=== PATIENT | male | born 1945 | race Caucasian/White ===

== ENCOUNTER 2017-06-26 10:36 | Outpatient (CLI) | payer MEDICARE, OTHER ==
--- NOTE | 2017-06-26 12:16 | CT ---
CT BRAIN WITHOUT CONTRAST: Date: 06/26/17 HISTORY: Headache, R51. COMPARISON: None. FINDINGS: No acute territory infarct or hemorrhage. No midline shift or mass effect. Ventricular size and extra -axial CSF spaces are normal. Calvarium is intact. Paranasal sinuses and mastoids are clear. IMPRESSION: No acute intracranial abnormality. POS: [facility]
== END 2017-06-26 10:37 | disposition home or self-care (01) ==
LOC: TBSIIMAG 10:36
PROVIDERS: ATTEND Neurological Surgery
DX: R51 Headache (principal)
CPT/HCPCS: 70450

== ENCOUNTER 2017-08-08 11:06 | Outpatient (CLI) | payer MEDICARE, OTHER | END 2017-08-08 11:07 | disposition home or self-care (01) | LOC: SLEEPLAB 11:06 | PROVIDERS: ATTEND Family Medicine | DX: G47.33 Obstructive sleep apnea (adult) (pediatric) (principal); E66.9 Obesity, unspecified | CPT/HCPCS: 95811 ==

== ENCOUNTER 2018-04-17 09:36 | Outpatient (CLI) | payer MEDICARE, OTHER ==
--- NOTE | 2018-04-17 12:06 | CT ---
CT LUMBAR SPINE WITHOUT CONTRAST: HISTORY: Low back pain that radiates down the right leg that has gotten worse over the last few months. Spond ylolisthesis. COMPARISON: None. TECHNIQUE: Multiple contiguous axial images were obtained in a CT of the lumbar spine without contrast. Sagitta l and coronal reformats were performed. FINDINGS: The vertebral bodies demonstrate normal height and alignment without fracture or subluxation. Modera te anterior osteophytes are seen in the upper lumbar spine. Atherosclerotic calcifications are seen in the aorta. The other prevertebral and paraspinal soft tissues are unremarkable. No pars defects are visualized. T12-L1: Unremarkable. L1-L2: Unremarkable. L2-L3: A small disk osteophyte complex is seen. Mild bilateral posterior facet arthrosis. No centr al canal stenosis. No neural foraminal stenosis. L3-L4: A small disk osteophyte complex is seen. Mild bilateral posterior facet arthrosis. Mild bry tral canal stenosis. Mild to moderate bilateral neural foraminal stenosis, right greater than left. L4-L5: A moderate disk osteophyte complex is seen. Moderate bilateral posterior facet arthrosis. M ild central canal stenosis. Moderate bilateral neural foraminal stenosis. L5-S1: No significant posterior bulge or protrusion. No posterior facet arthrosis. No central nicole l stenosis. Mild bilateral neural foraminal stenosis. IMPRESSION: Degenerative changes of the lumbar spine, as above. POS: [facility]
== END 2018-04-17 09:37 | disposition home or self-care (01) ==
LOC: BICCT 09:36
PROVIDERS: ATTEND Specialist
DX: M43.16 Spondylolisthesis, lumbar region (principal); M47.816 Spondylosis without myelopathy or radiculopathy, lumbar region
CPT/HCPCS: 72131

== ENCOUNTER 2018-04-25 12:41 | Outpatient (CLI) | payer MEDICARE, OTHER ==
--- NOTE | 2018-04-25 14:37 | ULT ---
RENAL SONOGRAM WITH DUPLEX EVALUATION: HISTORY: Chronic renal failure. FINDINGS: The right kidney is 11.2 cm and the left is 10.4 cm. Each has a normal appearance without evidence o f mass, stone, or hydronephrosis. The urinary bladder is incompletely distended. Good color and spectral Doppler flow within each renal artery and the aorta. No abnormally elevated peak systolic velocities. Resistive index associated with the arcuate arteries of the right kidney i s 0.8 and the left kidney is 0.7. IMPRESSION: 1. No evidence of urinary tract obstruction or significant renal artery stenosis. 2. Slightly elevated resistive indices are nonspecific, usually seen with chronic medical renal dise ase. POS: [facility]
== END 2018-04-25 12:42 | disposition home or self-care (01) ==
LOC: BICULT 12:41
PROVIDERS: ATTEND Internal Medicine Nephrology
DX: I13.10 Hypertensive heart and chronic kidney disease without heart failure, with stage 1 through stage 4 chronic kidney disease, or unspecified chronic kidney disease (principal); E11.22 Type 2 diabetes mellitus with diabetic chronic kidney disease; N18.3 Chronic kidney disease, stage 3 (moderate); I51.9 Heart disease, unspecified; R80.9 Proteinuria, unspecified; C61 Malignant neoplasm of prostate; E78.5 Hyperlipidemia, unspecified; E87.6 Hypokalemia; M19.90 Unspecified osteoarthritis, unspecified site; M10.9 Gout, unspecified
CPT/HCPCS: 76700; 76770

== ENCOUNTER 2018-08-27 09:04 | Outpatient (CLI) | payer MEDICARE, OTHER ==
--- NOTE | 2018-08-27 09:17 | RAD ---
EXAM: Chest PA and lateral: HISTORY: Dyspnea COMPARISON: 08/17/2015 FINDINGS: Lung ochoa are clear. Vascular markings are normal. Heart size mildly enlarged. Transvenous pacemaker and ICD leads are unchanged. Degenerative spine changes again noted. IMPRESSION: No acute finding. No interval change.
== END 2018-08-27 09:05 | disposition home or self-care (01) ==
LOC: RAD 09:04
PROVIDERS: ATTEND Internal Medicine Critical Care Medicine
DX: R06.00 Dyspnea, unspecified (principal)
CPT/HCPCS: 71046

== ENCOUNTER 2019-02-01 18:19 | Inpatient (IN) | payer MEDICARE, OTHER ==
[2019-02-01] MEDS ORDERED: cefTRIAXone\\ROCEPHIN 1 GM VIAL ONE (19:09)
[2019-02-01 19:52] LABS: CKMB 2.1 ng/mL (0-6.6)
[2019-02-01] MEDS ORDERED: Vancomycin HCl 1.25 GM in Sodium Chloride 0.9% 250 ML 250 ML IVPB SCH (20:15)
[2019-02-01 21:49] VITALS: BMI 31.1
[2019-02-01] MEDS ORDERED: Ondansetron ODT 4 MG TAB SL PRN (21:55)
[2019-02-01] MEDS ORDERED: Ondansetron PF 4 MG/2 ML Vial IVP PRN (21:55)
[2019-02-01] MEDS ORDERED: Acetaminophen 325 MG TAB PO PRN (21:55)
[2019-02-01] MEDS: Sodium Chloride 0.9% 1,000 ML IV SCH (22:26)
[2019-02-02] MEDS: Sodium Chloride 0.9% 1,000 ML IV SCH (05:33)
[2019-02-02] MEDS ORDERED: Carvedilol 25 MG TAB PO SCH (09:00)
[2019-02-02] MEDS ORDERED: HYDROcodone/Acetaminophen 5/325 mg Tablet PO PRN (09:37)
[2019-02-02] MEDS ORDERED: HYDROcodone/Acetaminophen 7.5/325 mg Tablet PO PRN (09:37)
[2019-02-02] MEDS ORDERED: Ondansetron PF 4 MG/2 ML Vial IVP PRN (09:37)
[2019-02-02] MEDS ORDERED: Ondansetron ODT 4 MG TAB PO PRN (09:37)
[2019-02-02] MEDS ORDERED: diphenhydrAMINE 25 MG CAP PO PRN (09:40)
[2019-02-02] MEDS ORDERED: Melatonin 3 MG TAB PO PRN (09:40)
[2019-02-02] MEDS ORDERED: Docusate 100 MG CAP PO PRN (09:40)
[2019-02-02] MEDS ORDERED: Labetalol HCl 100 MG/20 ML VIAL SLOW IVP PRN (09:40)
[2019-02-02] MEDS ORDERED: Benzonatate 100 MG CAP PO PRN (09:40)
[2019-02-02] MEDS: cefTRIAXone\\ROCEPHIN 2 GM in Sodium Chloride 0.9% 100 ML IVPB SCH (10:10)
[2019-02-02] MEDS: Famotidine 20 MG TAB PO SCH ×2 (10:10→20:35)
[2019-02-02] MEDS: Clopidogrel Bisulfate 75 MG TAB PO SCH (10:10)
[2019-02-02] MEDS: Isosorbide Dinitrate 5 MG TAB PO SCH (11:18)
[2019-02-02 12:38] LABS: Anion Gap 13 mmol/L (10-20); BUN (Urea Nitrogen) 40 mg/dL (8.4-25.7); Calc. Creatinine Clearance 33 mL/min (70-130); Calcium 8.1 mg/dL (7.8-10.44); Carbon Dioxide 22 mmol/L (23-31); Chloride 113 mmol/L (98-107); Estimated GFR-MDRD 23; Glucose 134 mg/dL (83-110); Potassium 3.5 mmol/L (3.5-5.1); Sodium 144 mmol/L (136-145)
--- NOTE | 2019-02-02 13:56 | ULT ---
BILATERAL RENAL ULTRASOUND: Date: 02/02/19 HISTORY: Acute renal insufficiency. FINDINGS/IMPRESSION: The right kidney measures 12.6 cm in length and the left kidney measures 11.4 cm in length. The corti sebastien echogenicity is increased consistent with medical renal disease. No mass or hydronephrosis noted on either side. The urinary bladder appears normal. There is a cystic structure anterior to the bladder, between the bladder and the anterior abdominal w all, measuring about 3.7 cm in diameter. Etiology of this is uncertain. POS: [facility]
--- NOTE | 2019-02-02 16:18 | PDOC.HHP ---
Hospitalist HPI - History of Present Illness UTI symptoms History of Present Illness: Mr. 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 Patient had this urethral sphincter changed because it was leaking, this was done by Dr. Wang at [facility] who is expert in the area in urology, per the patient. This was performed roughly 3 months ago and the patient has had problems ever since. Patient has had problems with bleeding and hematuria. Patient has problems with chronic urinary tract infection. Patient initially presenting to [facility] for sepsis and was transferred for higher level of care. The patient with urinary tract infection and his urethral sphincter is nonfunctional, he has urinary incontinence currently. Patient does have an outpatient appointment with Dr. Wang this Sunday which he would like to make to have urethral sphincter adjusted and make it functional. Patient found have urinary tract infection, acute kidney injury, and dehydration. Patient admitted to medical unit for further evaluation. Nephrology consultation requested for further recommendations. Patient started on empiric antibiotic therapy cultures were obtained. Hospitalist ROS - Review of Systems All other systems reviewed; all pertinent +/- noted in HPI/Subj - Medication Medications: Active Medications Generic Name Dose Route Start Last Admin Trade Name Freq PRN Reason Stop Dose Admin Albuterol/Ipratropium 3 ml 02/02/19 09:40 02/02/19 14:52 Duoneb NEB 3 ml Q4H PRN Administration SOB &/or Wheezing Clopidogrel Bisulfate 75 mg 02/02/19 09:00 02/02/19 10:10 Plavix PO 75 mg QAM JEROME Administration Famotidine 20 mg 02/02/19 09:00 02/02/19 10:10 Pepcid PO 20 mg BID JEROME Administration Ceftriaxone Sodium 2 gm/ 100 mls @ 100 mls/hr 02/02/19 10:00 02/02/19 10:10 Sodium Chloride IVPB 100 mls 1000 JEROME Administration Isosorbide Dinitrate 15 mg 02/02/19 09:00 02/02/19 11:18 Isordil PO 15 mg QAM JEROME Administration Ondansetron HCl 4 mg 02/02/19 09:37 02/02/19 10:07 Zofran IVP 4 mg Q6H PRN Administration Nausea/Vomiting Potassium Chloride 20 meq 02/02/19 09:00 02/02/19 10:10 Klor-Con PO 20 meq BID JEROME Administration Hospitalist History - Past Medical History Source: patient Cardiac: reports: HTN, [place] Pulmonary: reports: heart attack, high cholesterol, hypertension Renal/: reports: Other (Urinary incontinence associated with artificial urethral sphincter malfunction) - Family History Family History: reports: hyperlipidemia, hypertension - Social History Smoking Status: Unknown if ever smoked Alcohol: reports: None Drugs: reports: none Living Situation: With Family Domestic Violence: Negative Activity level: independent ambulation - Exam General Appearance: NAD, awake alert Eye: PERRL ENT: normocephalic atraumatic, moist mucosa Neck: supple, symmetric, no lymphadenopathy Heart: no murmur, no gallops, no rubs Respiratory: CTAB, no wheezes, no rales, no ronchi, normal chest expansion Gastrointestinal: soft, non-tender, non-distended, no guarding, no rigidity Extremities: no clubbing, no edema Skin: no lesions, no rashes Neurological: cranial nerve grossly intact, no weakness, no focal deficits Musculoskeletal: no muscle wasting Psychiatric: normal affect, A&O x 3 Hospitalist Results - Labs Result Diagrams: 02/02/19 11:54 Lab results: Sodium 144 mmol/L (136-145) 02/02/19 11:54 Potassium 3.5 mmol/L (3.5-5.1) 02/02/19 11:54 Chloride 113 mmol/L (98-107) H 02/02/19 11:54 Carbon Dioxide 22 mmol/L (23-31) L 02/02/19 11:54 BUN 40 mg/dL (8.4-25.7) H 02/02/19 11:54 Creatinine 2.73 mg/dL (0.7-1.3) H 02/02/19 11:54 Glucose 134 mg/dL (83-110) H 02/02/19 11:54 Calcium 8.1 mg/dL (7.8-10.44) 02/02/19 11:54 CK-MB (CK-2) 2.1 ng/mL (0-6.6) 02/01/19 18:53 Troponin I 0.143 ng/mL (< 0.028) H 02/01/19 18:53 - Radiology Interpretation Other Status: image reviewed by me (Renal US) Hospitalist H&P A/P - Problem (1) UTI (urinary tract infection) Status: Acute (2) SAMIR (acute kidney injury) Code(s): N17.9 - ACUTE KIDNEY FAILURE, UNSPECIFIED Status: Acute (3) CKD (chronic kidney disease) Code(s): N18.9 - CHRONIC KIDNEY DISEASE, UNSPECIFIED Status: Chronic (4) CAD (coronary artery disease) Code(s): I25.10 - ATHSCL HEART DISEASE OF [place] CORONARY ARTERY W/O ANG PCTRS Status: Chronic (5) Diabetes Code(s): E11.9 - TYPE 2 DIABETES MELLITUS WITHOUT COMPLICATIONS Status: Chronic (6) Hypertension Code(s): I10 - ESSENTIAL (PRIMARY) HYPERTENSION Status: Chronic - Plan Plan: Plan: medical unit nephrology consultation, recommendations appreciated consider urology consultation however the patient has an appointment with his outpatient urologist on Sunday of this week who is a specialist in urethral sphincter and did original surgery it is unlikely that our urologist will have anything to offer at this point Urinary incontinence, no obstruction patient will need treatment for urinary tract infection, started on empiric ABX Urine CX, de escalate as able Renal US blood pressure control blood sugar control continue home medications as able
[2019-02-02] MEDS: Carvedilol 25 MG TAB PO SCH (20:35)
[2019-02-03 06:49] LABS: Anion Gap 13 mmol/L (10-20); BUN (Urea Nitrogen) 43 mg/dL (8.4-25.7); Calc. Creatinine Clearance 32 mL/min (70-130); Calcium 8.7 mg/dL (7.8-10.44); Carbon Dioxide 23 mmol/L (23-31); Chloride 115 mmol/L (98-107); Estimated GFR-MDRD 22; Glucose 96 mg/dL (83-110); Potassium 3.6 mmol/L (3.5-5.1); Sodium 147 mmol/L (136-145)
[2019-02-03 07:07] LABS: #Eosinphils 0.3 thou/uL (0.0-0.7); #Lymphocytes 1.5 thou/uL (1.20-3.40); #Neutrophils 5.6 thou/uL (1.40-6.50); %Basophils 0.5 % (0.0-1.0); %Eosinophils 3.9 % (0.0-10.0); %Lymphocytes 17.9 % (21.0-51.0); %Monocytes 11.5 % (0.0-10.0); %Neutrophils 66.1 % (42.0-75.0); Hemoglobin 10.1 g/dL (14.0-18.0); Mean Corpuscular HGB CONC 31.2 g/dL (32.0-36.0); Mean Corpuscular Hemoglobin 31.3 pg (27.0-31.0); Mean Platelet Volume 11.3 fL (7.4-10.4); Platelet Count 116 thou/uL (130-400); Red Blood Cell (RBC) Count 3.24 mill/uL (4.70-6.10); White Blood Cell (WBC) Count 8.5 thou/uL (4.8-10.8)
[2019-02-03 07:22] LABS: Bite Cells SLIGHT = 2-5 cells (100X) (0-1/hpf); Hypochromia SLIGHT = 6-15 cells (100X) (0-5/hpf); MDiff Complete? YES; Platelet Morphology Comment Appears Decreased; Polychromasia SLIGHT = 2-3 cells (100X) (0-2/hpf); Schistocytes SLIGHT = 2-5 cells (100X) (0-1/hpf)
[2019-02-03 07:48] VITALS: BP 191/76; TEMP 98.3
[2019-02-03] MEDS ORDERED: Allopurinol 300 MG TAB PO SCH (09:00)
[2019-02-03] MEDS ORDERED: Aspirin Chewable 81 MG TAB PO SCH (09:00)
[2019-02-03] MEDS: cefTRIAXone\\ROCEPHIN 2 GM in Sodium Chloride 0.9% 100 ML IVPB SCH (10:52)
[2019-02-03] MEDS: Isosorbide Dinitrate 5 MG TAB PO SCH (10:53)
[2019-02-03] MEDS: Carvedilol 25 MG TAB PO SCH (10:54)
[2019-02-03] MEDS: Famotidine 20 MG TAB PO SCH (10:54)
[2019-02-03] MEDS: Clopidogrel Bisulfate 75 MG TAB PO SCH (10:55)
--- NOTE | 2019-02-04 04:17 | DIS ---
DATE OF ADMISSION: 02/01/2019 DATE OF DISCHARGE: 02/03/2019 REASON FOR HOSPITALIZATION: Urinary tract infection. SIGNIFICANT FINDINGS: The patient was found to have acute urinary tract infection. PROCEDURES PERFORMED AND TREATMENTS RENDERED: The patient was admitted to medical unit with telemetry, started on IV antibiotics. The patient was monitored in [facility] and had resolution of fevers. The patient had a normal WBC count. The patient is ambulating to and from the restroom without difficulties. The patient recommended safe for discharge with close followup in the outpatient setting. CONDITION ON DISCHARGE: Stable. SPECIFIC INSTRUCTIONS FOR THE PATIENT/FAMILY: 1. The patient is recommended to take a full course of oral antibiotics for resolution of urinary tract infection. 2. The patient is recommended to follow up with Urology, Dr. Wang, at his appointment tomorrow in the outpatient setting for evaluation and treatment of implantable urethral sphincter. The patient is recommended to discuss recent hospitalization with Dr. Wang, his urologist, and take in the medication that he was discharged for re-evaluation by urologist. 3. The patient is recommended to follow up with primary care physician in the next 5 to 7 days. 4. The patient is recommended follow up with Cardiology in the next 1 to 2 weeks. 5. The patient is recommended to follow up with Nephrology in the next 1 to 2 weeks. 6. The patient is recommended to return to acute care hospital immediately if signs or symptoms return, worsen, or any other new symptoms occur. HOSPITAL COURSE: Mr. Vázquez is a very pleasant 73-year-old gentleman with past medical history of prosthetic urethral sphincter placed by Dr. Wang roughly 3 months ago. The patient states that he has had frequent complications since this time including bleeding from the urinary bladder and also frequent bladder infections. The patient initially presented to the emergency department in [place] and was transferred for higher level of care. The patient was started on empiric antibiotics, which resulted in resolution of his fever. The patient with additionally febrile with a fever of 101.1 on admission. After the starting of antibiotics, patient having no more fevers. The patient had a normal WBC count. The patient's urine was collected for a urine culture and this remains with no growth to date. I will continue to watch the urinary culture and if abnormality develops, I will update the patient if there is resistance to the current antibiotics. The patient was ambulating to and from the restroom without difficulties. The patient did have acute kidney injury on chronic kidney disease. I ordered a renal ultrasound, please see full report for details, there is no obstructive uropathy and there is no hydronephrosis. The patient's implantable urinary sphincter is identifiable. Due to the fact that the patient is voiding without difficulties, he is responding to oral antibiotics, I recommended that he is safe for discharge with close followup in the outpatient setting. The patient has an appointment with his urologist tomorrow in the outpatient setting and I encouraged him to not miss this appointment. 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 The patient recommended to complete a full course of oral antibiotics for resolution of urinary tract infection. The patient recommended to continue all other home medications without changes. The patient is recommended to return to acute care hospital immediately if signs or symptoms return, worsen , or any other new symptoms occur. DISCHARGE MEDICATIONS: Please see full discharge medication list for details, as they have not changed. New medications: Include; 1. Cefpodoxime 200 mg one tablet p.o. q.12 hours for the next 7 days, #14 tablets. 2. Albuterol sulfate two puffs p.o. q.4 hours p.r.n. shortness of breath. 3. All other medications were continued without changes. Greater than 37 minutes spent coordinating care and discharge process for this patient. Job ID: [id number] [facility]
--- NOTE | 2019-02-05 06:40 | PQF ---
[employer] Junior Media Buyer Crystal Reports Winform ViewerSALEM,MARIE Ochoa IAN JOLLEY [id number] [facility] [id number] CLINICAL DOCUMENTATION CLARIFICATION FORM: POST DISCHARGE Addendum to original discharge summary date: ____ Late entry note date: __ DATE: 02/05/2019 ATTN : IAN JOLLEY Please exercise your independent, professional judgment in responding to the clarification form. Clinical indicators are provided on the bottom of this form for your review Please check appropriate box(s): [ XX ] UTI due to Prosthetic urethral sphincter [ ] UTI not due to Prosthetic urethral sphincter [ ] Other diagnosis [ ] Unable to determine In addition, please specify: Present on Admission (POA): [ XX ] Yes [ ] No [ ] Unable to determine For continuity of documentation, please document condition throughout progress notes and discharge summary. Thank You. 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 - Documented in H&P on 02/01 by IAN JOLLEY hx of urethral sphincter changed - Documented in H&P on 02/01 by IAN JOLLEY SAMIR - Hx of 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 All Rights Reserved [email or web address] [not provided] MTDD
--- NOTE | 2019-02-10 03:39 | PQF ---
SAP Army Ranger Crystal Reports Winform ViewerSALMARIE ROSEN IAN JOLLEY [id number] [facility] [id number] CLINICAL DOCUMENTATION CLARIFICATION FORM: POST DISCHARGE Addendum to original discharge summary date: ____ Late entry note date: __ DATE: 02/10/2019 ATTN: IAN JOLLEY Please exercise your independent, professional judgment in responding to the clarification form. Clinical indicators are provided on the bottom of this form for your review Please check appropriate box(s) to clarify if the following diagnosis has been ruled in or ruled out: SEPSIS (CDI/Coding list diagnosis here) [ XX ] Ruled in diagnosis [ XX ] Continue to treat [ ] Resolved [ ] Ruled out diagnosis [ ] Cannot rule out diagnosis [ ] Other diagnosis [ ] Unable to determine In addition, please specify: Present on Admission (POA): [ XX ] Yes [ ] No [ ] Unable to determine For continuity of documentation, please document condition throughout progress notes and discharge summary. Thank You. CLINICAL INDICATORS - SIGNS / SYMPTOMS / LABS Sepsis - Documented in H&P on 02/01 by IAN JOLLEY Fever 101.1 on admission - Documented in DS on 02/03 by Alejandro Dejesus UTI due to Prosthetic uretheral sphincter - Documented in Physician Query response RISK FACTORS SAMIR - Documented in H&P on 02/01 by IAN JOLLEY HTN with CKD TREATMENTS Started in Empiric ABC- Documented in H&P on 02/01 by IAN JOLLEY Patient was monitored on in acute care hospital - Documented in DS on 02/03 by Alejandro Dejesus (This form is maintained as a part of the permanent medical record) SAP Army Ranger Crystal Reports Winform [id number]. All Rights Reserved [email or web address] [not provided] ALANNA
== END 2019-02-03 12:31 | disposition home or self-care (01) | DRG 698 ==
LOC: ERS 18:19 → T4-B 19:15
PROVIDERS: ADMIT Internal Medicine; ATTEND Internal Medicine
DX: T83.591A Infection and inflammatory reaction due to implanted urinary sphincter, initial encounter (principal); A41.9 Sepsis, unspecified organism; N39.0 Urinary tract infection, site not specified; N17.9 Acute kidney failure, unspecified; E86.0 Dehydration; Z79.899 Other long term (current) drug therapy; N18.9 Chronic kidney disease, unspecified; I12.9 Hypertensive chronic kidney disease with stage 1 through stage 4 chronic kidney disease, or unspecified chronic kidney disease; E11.22 Type 2 diabetes mellitus with diabetic chronic kidney disease; I25.10 Atherosclerotic heart disease of native coronary artery without angina pectoris
CPT/HCPCS: 36415; 36416; 76770; 80048; 82553; 85025; 87086; 94640; 96365; 96367; J0696; J2405; J3370; J3490; J7050; J7620

== ENCOUNTER 2019-07-17 05:57 | Inpatient (IN) | payer MEDICARE, OTHER ==
[2019-07-17] MEDS ORDERED: Nitroglycerin 50 MG/250 ML BOT 250 ML ONE (06:23)
[2019-07-17] MEDS ORDERED: Nitroglycerin 2% Ointment 1 INCH/1 GM Packet ONE (06:33)
[2019-07-17 09:36] LABS: CKMB 2.7 ng/mL (0-6.6)
[2019-07-17 11:02] VITALS: BMI 37.1
[2019-07-17 11:46] LABS: Troponin I 0.078 ng/mL (< 0.028)
[2019-07-17] MEDS ORDERED: Senokot S 8.6-50 MG TAB PO PRN (13:01)
[2019-07-17] MEDS ORDERED: Acetaminophen 325 MG TAB PO PRN (13:01)
[2019-07-17] MEDS ORDERED: Clopidogrel Bisulfate 75 MG TAB PO SCH (13:45)
[2019-07-17] MEDS ORDERED: Carvedilol 25 MG TAB PO SCH ×3 (13:45→21:00)
[2019-07-17 14:24] LABS: Anion Gap 13 mmol/L (10-20); BUN (Urea Nitrogen) 51 mg/dL (8.4-25.7); Calc. Creatinine Clearance 35 mL/min (70-130); Carbon Dioxide 27 mmol/L (23-31); Chloride 107 mmol/L (98-107); Estimated GFR-MDRD 20; Potassium 3.1 mmol/L (3.5-5.1); Sodium 144 mmol/L (136-145)
[2019-07-17 14:25] LABS: Calcium 8.6 mg/dL (7.8-10.44); Glucose 121 mg/dL (83-110)
[2019-07-17] MEDS ORDERED: Potassium Chloride 20 MEQ TAB PO SCH (15:45)
[2019-07-17] MEDS ORDERED: Isosorbide Dinitrate 5 MG TAB PO SCH (16:00)
[2019-07-17] MEDS ORDERED: Allopurinol 300 MG TAB PO SCH (21:00)
[2019-07-17] MEDS ORDERED: Sacubitril 49 MG/Valsartan 51 MG TABLET PO SCH (21:00)
[2019-07-17] MEDS ORDERED: Rosuvastatin 20 MG TAB PO SCH (21:00)
[2019-07-18 05:52] LABS: Hemoglobin 12.9 g/dL (14.0-18.0); Mean Corpuscular HGB CONC 32.6 g/dL (32.0-36.0); Mean Corpuscular Hemoglobin 32.1 pg (27.0-31.0); Mean Corpuscular Volume 98.5 fL (78.0-98.0); RBC Distribution Width 13.9 % (11.5-14.5); Red Blood Cell (RBC) Count 4.01 mill/uL (4.70-6.10)
--- NOTE | 2019-07-18 05:55 | HP ---
CHIEF COMPLAINT: Shortness of breath. HISTORY OF PRESENT ILLNESS: The patient is a very pleasant 73-year-old male with a history of CAD and heart failure, unknown EF, who presented to the hospital with complaints of shortness of breath x1 day. The patient stated that prior to his incident, he stated he was feeling just fine; however, he woke up around 3 a.m. yesterday, felt very short of breath, very raspy, started coughing, wheezing, and he came into the hospital for further evaluation. He denies any chest pain or chest pressure. He stated that he has not had increased salt intake in the past few days. He normally drinks the same amount of water that he has been drinking. He has been noticing some worsening lower extremity edema; however, nothing significant. He denies any fevers or chills. He has been seen by Cardiology about a month and a half ago. PAST MEDICAL HISTORY: Hypertension; CAD, stent x1; systolic heart failure; and high cholesterol. PAST SURGICAL HISTORY: He has had a prosthetic urethral sphincter. FAMILY HISTORY: Hyperlipidemia and hypertension. SOCIAL HISTORY: He was a former smoker. Denies any drug use, smoking history, or drinking history. He is a full code. Lives with his family. REVIEW OF SYSTEMS: All negative except for the ones mentioned above in the HPI. PHYSICAL EXAMINATION: VITAL SIGNS: Temperature of 97.8, heart rate 69, respiratory rate 20, oxygen saturation 97% on room air, and blood pressure 159/82. GENERAL: He is awake, alert, and oriented x3. Does not appear in distress. CV: S1 and S2 present. No murmurs, rubs, or gallops. LUNGS: Clear to auscultation. No rhonchi or wheezes noted. ABDOMEN: Soft and nontender. Bowel sounds are present x2. EXTREMITIES: Mild 1+ lower extremity edema. NEUROVASCULAR: There are no focal deficits noted. SKIN: No cuts, lesions, or bruises noted. ALLERGIES: HE HAS NO KNOWN DRUG ALLERGIES. MEDICATIONS: 1. Carvedilol 50 mg twice a day. 2. Lasix 20 mg q.a.m. 3. Allopurinol 300 mg q.p.m. 4. Aspirin 81 mg daily. 5. Clopidogrel 75 mg daily. 6. He is on isosorbide 15 mg q.a.m. 7. Potassium 20 mEq b.i.d. 8. Rosuvastatin 20 mg daily. 9. Entresto 49/51 mg one p.o. b.i.d. LABORATORY DATA: WBCs of 7.8, hemoglobin of 14.3, hematocrit of 44.1, and platelets of 159. Chemistry; sodium of 144, potassium of 3.1, BUN 51, and creatinine of 3.14. ASSESSMENT AND PLAN: The patient is a very pleasant 73-year-old male, who presents to the hospital with complaints of shortness of breath. 1. Acute on chronic systolic heart failure. The patient's BNP was 1257. He was given 120 mg of Lasix x1. The patient states that he feels a lot better. His x-ray looks like he had some significant pulmonary congestion. The patient denies any recent changes, any medications, or any diet or increased water intake; however, he was noted to have an elevated creatinine, not sure if that was the cause of it. He did have some elevated troponins. I will go ahead and order an echo and also consult Cardiology. 2. Acute on chronic kidney disease. I will hold off on his Entresto for now and any nephrotoxins. I will continue to monitor the patient. 3. Hypertension. We will continue his isosorbide and his carvedilol. 4. Heart failure, unknown etiology. The patient does have an automatic implantable cardioverter defibrillator, most likely systolic. Will get an echo and check his ejection fraction. I will hold off on the diuretic for today since he has gotten 120 mg. I will start him on Lasix in the morning. 5. Deep venous thrombosis prophylaxis. We will put the patient on Lovenox. Job ID: [id number]
[2019-07-18 05:59] LABS: Anion Gap 15 mmol/L (10-20); BUN (Urea Nitrogen) 51 mg/dL (8.4-25.7); Calc. Creatinine Clearance 29 mL/min (70-130); Calcium 8.7 mg/dL (7.8-10.44); Carbon Dioxide 25 mmol/L (23-31); Chloride 106 mmol/L (98-107); Estimated GFR-MDRD 20; Glucose 84 mg/dL (83-110); Potassium 3.1 mmol/L (3.5-5.1); Sodium 143 mmol/L (136-145)
[2019-07-18 06:41] LABS: #Eosinphils 0.2 thou/uL (0.0-0.7); #Lymphocytes 2.1 thou/uL (1.20-3.40); #Monocytes 0.6 thou/uL (0.11-0.59); #Neutrophils 3.7 thou/uL (1.40-6.50); %Basophils 0.7 % (0.0-1.0); %Lymphocytes 31.9 % (21.0-51.0); %Monocytes 8.7 % (0.0-10.0); %Neutrophils 55.7 % (42.0-75.0); Large Platelets SLIGHT; MDiff Complete? YES; Mean Platelet Volume 12.4 fL (7.4-10.4); Platelet Count 130 thou/uL (130-400); Platelet Morphology Comment Appears Adequate; White Blood Cell (WBC) Count 6.7 thou/uL (4.8-10.8)
[2019-07-18] MEDS ORDERED: Potassium Chloride 20 MEQ TAB PO SCH ×3 (08:30→17:00)
[2019-07-18] MEDS ORDERED: Isosorbide Dinitrate 5 MG TAB PO SCH ×2 (09:00)
[2019-07-18] MEDS ORDERED: Clopidogrel Bisulfate 75 MG TAB PO SCH ×2 (09:00)
[2019-07-18] MEDS ORDERED: Enoxaparin Sodium 40 MG/0.4 ML SYRINGE SC SCH (09:00)
[2019-07-18] MEDS ORDERED: Furosemide 40 MG/4 ML VIAL SLOW IVP SCH (09:00)
[2019-07-18] MEDS ORDERED: Aspirin Chewable 81 MG TAB PO SCH (09:00)
[2019-07-18] MEDS ORDERED: Carvedilol 25 MG TAB PO SCH (09:00)
--- NOTE | 2019-07-18 11:38 | CON ---
DATE OF CONSULTATION: 07/18/2019 REASON FOR CONSULTATION: Congestive heart failure. HISTORY OF PRESENT ILLNESS: Mr. Vázquez is a 73-year-old gentleman with long history of congestive heart failure, systolic, and coronary artery disease as well as biventricular pacemaker, who was admitted to the hospital with severe shortness of breath, sudden onset. The patient has been doing okay until two nights ago at three in the morning, woke with severe difficulty breathing. He went to the emergency room and received diuretic and said he began feeling better within a few hours. The patient did have a COVID swab done which is still pending. He had no chest pain. He had no fever. PAST MEDICAL HISTORY: 1. A long history of congestive heart failure, systolic. 2. Coronary artery disease. 3. Renal failure, stage 4. 4. History of biventricular pacing defibrillator. MEDICATIONS: He was taking 1. Carvedilol 25 mg twice a day. 2. Entresto 49/51 twice a day. 3. Lasix 20 mg a day. 4. Aspirin. 5. Statin. REVIEW OF SYSTEMS: CONSTITUTIONAL: No significant weight gain or loss. VISION: No changes. HEARING: No changes. PULMONARY: No cough or wheezing. GASTROINTESTINAL: No nausea, vomiting, or diarrhea. PHYSICAL EXAMINATION: GENERAL: I did not examine him due to the COVID virus pandemic. The recommendations are to minimize contact with patients who the diagnosis is still being considered. LUNGS: Looking at the records, the lungs were clear. He had no wheezing. CARDIAC: Normal S1, normal S2 with mild edema. LABORATORY DATA: Chest x-ray showed pulmonary vascular congestion with cardiomegaly. Laboratory revealed a creatinine of 3.13. BNP was 1608, dropped down to 894. ASSESSMENT: 1. Congestive heart failure, acute on chronic. 2. Coronary artery disease. 3. Biventricular pacemaker-defibrillator functioning normally. 4. Hypokalemia. PLAN: 1. Replete potassium. 2. Resume Entresto. 3. We will resume carvedilol at half, previous dose. 4. Okay to me to be released home from a cardiac standpoint. I do not think the patient has clinical evidence of coronavirus infection. Swab to be checked up as an outpatient, but he does not seem to have any evidence of that is being his problem. White count is normal at 6.7, afebrile, and his symptoms improved dramatically quickly with diuretics. The patient from my standpoint to be released home at any time. Job ID: [id number]
[2019-07-18] MEDS ORDERED: hydrALAZINE 20 MG/ML VIAL SLOW IVP PRN (11:51)
--- NOTE | 2019-07-18 12:02 | CON ---
DATE OF CONSULTATION: 07/18/2019 REASON FOR CONSULTATION: Congestive heart failure. HISTORY OF PRESENT ILLNESS: Mr. Ravi Vázquez is a 73-year-old gentleman with a long history of coronary artery disease and history of congestive heart failure along with biventricular pacing. He was doing well until the night before last, he woke up at 3:00 in the morning, he could not breathe. He receive intravenous diuretics and felt dramatically better. The patient has received additional diuretics intravenously yesterday and again this morning, he said he feels back to normal. No chest pain or pressure. No fever or chills. PHYSICAL EXAMINATION: Blood pressure 170/90, pulse 70. Due to the COVID virus pandemic, I did not examine him for the current recommendations. However, in the chart, it was indicated that his lungs were clear, no wheezing or rhonchi. Abdomen was soft and nontender. Extremities, mild edema. Skin was warm and dry. LABORATORY DATA: His potassium is 3.1 this morning, it was 3.7 on admission, indicating he has likely been diuresing well. Creatinine is 3.13. Chest x-ray did show some pulmonary vascular congestion. EKG did reveal an appropriate atrial function and biventricular pacing and was normal. The patient's BNP has gone from 1606 to 894. ASSESSMENT: 1. Congestive heart failure, systolic, acute on chronic. 2. No clinical evidence of COVID infection. PLAN: 1. The patient received intravenous diuretics today. 2. Resume Entresto tonight. 3. Reduce carvedilol to 25 mg twice a day. 4. Increase home dose of furosemide from 20 mg a day to 40. 5. Okay with me to be released home. Clinically, it does not sound like a COVID infection. It sounds like congestive heart failure. We do need to double check on his carvedilol dose. It is listed in the computer as 50 mg twice a day and in the office visit as 25 twice a day recommend cutting it in half. I will try to clarify that and comment in chart. Job ID: [id number]
--- NOTE | 2019-07-18 13:20 | EKG ---
Test Reason : CHF Blood Pressure : / mmHG Vent. Rate : 070 BPM Atrial Rate : 070 BPM P-R Int : 134 ms QRS Dur : 184 ms QT Int : 508 ms P-R-T Axes : 000 -82 086 degrees QTc Int : 548 ms AV sequential or dual chamber electronic pacemaker Confirmed by MARGARET SALAS ([id number]), department editor DAVI GATICA ([id number] on 07/18/2019 1:19:54 PM Referred By: Confirmed By:MARGARET Kamara
[2019-07-18] MEDS ORDERED: Carvedilol 6.25 MG TAB PO SCH (17:00)
[2019-07-18 17:11] VITALS: BP 171/105
[2019-07-18 17:24] VITALS: TEMP 96.4
[2019-07-18] MEDS ORDERED: Sacubitril 49 MG/Valsartan 51 MG TABLET PO SCH (21:00)
--- NOTE | 2019-07-19 00:17 | DIS ---
DATE OF ADMISSION: 07/17/2019 DATE OF DISCHARGE: 07/18/2019 DISCHARGE DIAGNOSES: 1. Shortness of breath. 2. Acute on chronic systolic heart failure. 3. Coronary artery disease. 4. Hypokalemia, resolved. 5. Acute kidney injury on chronic kidney disease. HOSPITAL COURSE: The patient is a 73-year-old male who initially presented to the hospital with complaints of shortness of breath. He was given IV diuretics. He felt really well after that. Echocardiogram was ordered and Cardiology was consulted. Echocardiogram is pending. Cardiology was okay to resume his Entresto and also start him on twice a day diuretic. I did confirm with the patient that his creatinine from baseline is mildly elevated. At this time, he will follow up with his speedboat driver next week to repeat his blood work. HOME MEDICATIONS: His home medications will be as of the following. He is going to be on: 1. Allopurinol 300, however I have instructed the patient to take 150 mg given his clearance. 2. Lasix 20 mg twice a day. 3. Carvedilol 12.5 twice a day. 4. Aspirin 81 mg daily. 5. Rosuvastatin 20 mg at bedtime. 6. Entresto one tablet b.i.d. 7. Onglyza 2.5 Sunday, Sunday, and Sunday. 8. Clopidogrel 75 mg daily. 9. Isosorbide daily. 10. Potassium 20 mEq p.o. b.i.d., given his persistent hypokalemia. The patient at this time will be discharged home. He feels great. He will follow up with his primary care doctor and also with speedboat driver. PHYSICAL EXAMINATION: VITAL SIGNS: Temperature of 98.8, pulse 69, blood pressure 140/94, respirations 15, and oxygen saturation 95% on room air. GENERAL: He is awake, alert, and oriented x3. Does not appear in distress. CV: S1 and S2 present. No murmurs, rubs, or gallops. ABDOMEN: Soft and nontender. Bowel sounds are present x2. The patient was tested for COVID. His result was still pending. Suspicion is very low. He will follow up with his primary. Job ID: [id number]
[2019-07-19] MEDS ORDERED: Furosemide 40 MG TAB PO SCH (07:30)
[2019-07-19] MEDS ORDERED: Enoxaparin Sodium 30 MG/0.3 ML SYRINGE SC SCH (09:00)
[2019-07-19] MEDS ORDERED: Furosemide 20 MG TAB PO SCH (09:00)
== END 2019-07-18 17:40 | disposition home or self-care (01) | DRG 291 ==
LOC: ERS 05:57 → 2SW 07:36
PROVIDERS: ADMIT Emergency Medicine; ATTEND Emergency Medicine
DX: I13.0 Hypertensive heart and chronic kidney disease with heart failure and stage 1 through stage 4 chronic kidney disease, or unspecified chronic kidney disease (principal); I50.23 Acute on chronic systolic (congestive) heart failure; N17.9 Acute kidney failure, unspecified; N18.4 Chronic kidney disease, stage 4 (severe); I25.10 Atherosclerotic heart disease of native coronary artery without angina pectoris; E87.6 Hypokalemia; E78.00 Pure hypercholesterolemia, unspecified; Z95.5 Presence of coronary angioplasty implant and graft; Z87.891 Personal history of nicotine dependence; Z95.810 Presence of automatic (implantable) cardiac defibrillator
CPT/HCPCS: 36415; 36416; 80048; 82553; 83880; 85025; 93005; 93306; J1650; J1940

== ENCOUNTER 2020-03-17 04:08 | Inpatient (IN) | payer MEDICARE, OTHER ==
[2020-03-17] MEDS ORDERED: Acetaminophen 325 MG TAB PO PRN (04:47)
--- NOTE | 2020-03-17 05:08 | PDOC.BPN ---
- Brief Progress Note [id number] HP dictated
--- NOTE | 2020-03-17 05:36 | HP ---
CHIEF COMPLAINT: Shortness of breath. HISTORY OF PRESENT ILLNESS: Mr. Vázquez is a 74-year-old male with past medical history of congestive heart failure, chronic kidney disease, diabetes, hypertension, hyperlipidemia, prostate cancer, coronary artery disease, stent placement, defibrillator/pacemaker, among others, is being transferred from [facility] after he presented there with shortness of breath. The patient was in severe respiratory distress, placed on CPAP and was given IV Lasix. Chest x-ray showed fluid overload. EKG showed tachy paced rhythm. The patient was also treated with nitroglycerin paste, the patient was weaned off to 2 L of nasal cannula. The patient is being transferred to our medical facility for further management. Denies fever or chills. PAST MEDICAL HISTORY: As mentioned above in the history of present illness. PAST SURGICAL HISTORY: 1. Defibrillator/pacemaker. 2. Stent placement. 3. Left shoulder rotator cuff. 4. Bladder sphincter replacement. SOCIAL HISTORY: Denies alcohol use. He is a former tobacco user. FAMILY HISTORY: Reviewed and noncontributory. HOME MEDICATIONS: See home medication reconciliation form for updated medications. ALLERGIES: NO KNOWN ALLERGIES. REVIEW OF SYSTEMS: Review of 14 systems negative except what is mentioned in the history of present illness. PHYSICAL EXAMINATION: GENERAL: The patient is awake, alert, in moderate respiratory distress, orthopneic. VITAL SIGNS: Blood pressure 160/90, pulse is 75, respiratory rate is 20, temperature 98.4, and oxygen saturation 99% on 3 L/minute nasal cannula. HEAD AND NECK: Normocephalic, atraumatic. Neck is supple. No JVD. CHEST: Few bibasilar crackles. HEART: Distant heart sounds. ABDOMEN: Soft and nontender. NEUROLOGIC: Awake, alert, oriented. No focal deficits. PSYCH: Unable to assess. EXTREMITIES: Positive for edema. No clubbing. No cyanosis. LABORATORY DATA: WBC 10.8, hemoglobin 13.8, and platelets 148. BUN is 63, creatinine 3.6, potassium 3.7. Troponin 0.1, which is about his baseline from prior admissions. IMAGING DATA: Chest x-ray as mentioned above in the history of present illness. ASSESSMENT: 1. Acute on chronic congestive heart failure. 2. Chronic kidney disease, stage 3/4. 3. Hypertension. 4. Coronary artery disease. 5. Pacemaker/defibrillator. 6. Hyperlipidemia. PLAN: 1. Admit. 2. Tele monitor. 3. IV diuresis. 4. Monitor kidney function and urine output. 5. Continue to trend troponins. 6. Consult the patient's preliminary school psychologist in a.m. for evaluation and further recommendations. 7. Reconcile home medications. 8. DVT prophylaxis as appropriate. 9. Expected length of stay, at least 1 midnight if the patient is stable. Job ID: [id number]
[2020-03-17] MEDS: Furosemide 40 MG/4 ML VIAL SLOW IVP SCH ×2 (05:54→13:34)
[2020-03-17 06:26] VITALS: BMI 31.3
[2020-03-17] MEDS: Heparin 5,000 UNITS/ML VIAL SC SCH ×2 (08:18→21:47)
[2020-03-17 08:38] LABS: Troponin I 0.167 ng/mL (< 0.028)
[2020-03-17] MEDS ORDERED: Aspirin 325 MG TAB PO SCH (09:00)
[2020-03-17] MEDS ORDERED: FLU VACC QS2020-21(65YR UP)/PF 240 MCG/0.7 ML SYRINGE IM ONE (09:00)
[2020-03-17] MEDS ORDERED: Doxepin HCl 25 MG CAP PO PRN (13:36)
[2020-03-17] MEDS ORDERED: Clopidogrel Bisulfate 75 MG TAB PO SCH (13:45)
--- NOTE | 2020-03-17 17:26 | PDOC.EVN ---
Event Note - Event Note Event Note: F/u: CHF The patient feels much better than he did this morning. He has been weaned off oxygen and is on room air. He still has a dry cough. He recently had Covid a few weeks ago and is requesting for dexamethasone again for the dry cough . He states that he does not eat any added salt. He drinks a lot of water at night, about a quart because he is so thirsty in the evening from urinating all day. He takes lasix 40 mg twice daily at home and is compliant He has been taking Entresto for a year. He does not think he has had an echo recently. He follows with Dr. Herrmann for the past 21 years and is anxious to see him He has not gotten out of bed yet. 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 He has diuresed 1100 per nurse. Will repeat BMP , creatinine was 3.62 this morning, his baseline is around 2.5. Will hold entresto for now - repeat chest Xray tomorrow - cardiology has been consulted since patient requesting Hypertension - BP is back up to 160, will continue coreg 25 mg po bid Anemia - Hb 13.8, stable, will monitor Hypernatremia - soduim 146, will repeat BMP Recent COVID + - no pneumonia on X ray, will monitor since on room air
[2020-03-17 17:33] LABS: CKMB 2.2 ng/mL (0-6.6)
--- NOTE | 2020-03-17 18:51 | CON ---
DATE OF CONSULTATION: 03/17/2020 REASON FOR CONSULTATION: Congestive heart failure, systolic, acute on chronic. HISTORY OF PRESENT ILLNESS: Mr. Vázquez is a 74-year-old man with a history of chronic congestive heart failure, admitted with pulmonary edema. Mr. Vázquez has a long cardiac history. Unfortunately, the [facility] system is currently down. Therefore, I can place all the details in this note. However, he has a long history of coronary artery disease. The most recent catheterization indicated that medical therapy is the most appropriate treatment. He also has a history of biventricular pacemaker defibrillator, which has been very helpful to him. He also has history of stage 4 renal failure. He states that he noticed in the last few days he was coughing some and then late last night in the middle of night also he started coughing severely, had severe difficulty breathing, went to the hospital, was found to be in pulmonary edema and received Lasix with improvement in symptoms. The patient did not have any chest pain or pressure with this. MEDICATIONS: At home, he was takin. Carvedilol 25 mg twice a day. 2. Entresto 49/51 twice a day. 3. Lasix 40 mg twice a day. 4. Crestor 20 mg a day. 5. Isosorbide 15 mg a day. 6. Aspirin. 7. Clopidogrel. PAST HISTORY: He also has history of stage 4 renal failure. REVIEW OF SYSTEMS: CONSTITUTIONAL: No significant weight gain or loss. VISION: No changes. HEARING: No changes. PULMONARY: Positive for shortness of breath. GASTROINTESTINAL: No nausea, vomiting, or diarrhea. SKIN: No rashes. NEUROLOGIC: No unilateral weakness or numbness. PSYCHIATRIC: No unusual depression or anxiety. PHYSICAL EXAMINATION: GENERAL: This is a pleasant gentleman. He is awake and alert, feels well now, sitting up in a chair. He said he has had a good diuresis this morning. VITAL SIGNS: Pulse is in the mid 70s. NECK: Neck veins are normal. Carotid normal upstrokes. LUNGS: A few basilar rales. CARDIAC: Normal S1 and normal S2. ABDOMEN: Obese and nontender. EXTREMITIES: No clubbing or cyanosis. There is only mild edema. DIAGNOSTIC STUDIES: EKG reveals it looks like atrial sensing, biventricular pacing. The most recent ejection fraction is in the 20% range. The computer is down to get the actual complete report. LABORATORY DATA: His creatinine is 3.6, estimated GFR 16, and potassium 3.7. Troponin 0.134. BNP 3214. ASSESSMENT: 1. Congestive heart failure, systolic, acute on chronic. 2. Underlying coronary artery disease. 3. Stage IV renal failure. 4. Status post biventricular pacemaker defibrillator with normal function. PLAN: 1. Continue intravenous diuretics. 2. Basic metabolic tomorrow. 3. We will probably change from furosemide to torsemide as an outpatient. Hopefully will be able to be released home tomorrow. Long-term prognosis guarded. Job ID: [id number]
[2020-03-17] MEDS ORDERED: hydrALAZINE 20 MG/ML VIAL SLOW IVP PRN (20:25)
[2020-03-17] MEDS ORDERED: Albuterol Sulfate 2.5 mg/3 ml Neb NEB PRN (20:26)
[2020-03-17 21:00] LABS: Anion Gap 18 mmol/L (10-20); BUN (Urea Nitrogen) 64 mg/dL (8.4-25.7); Calc. Creatinine Clearance 25 mL/min (70-130); Calcium 8.4 mg/dL (7.8-10.44); Carbon Dioxide 25 mmol/L (23-31); Chloride 106 mmol/L (98-107); Glucose 124 mg/dL (83-110); Potassium 3.3 mmol/L (3.5-5.1); Sodium 146 mmol/L (136-145)
[2020-03-17] MEDS ORDERED: Carvedilol 25 MG TAB PO SCH ×2 (21:00→21:45)
[2020-03-17] MEDS ORDERED: Allopurinol 300 MG TAB PO SCH ×3 (21:00→21:45)
[2020-03-17] MEDS: Benzonatate 100 MG CAP PO PRN (21:47)
[2020-03-18] MEDS ORDERED: hydrALAZINE 20 MG/ML VIAL SLOW IVP SCH (00:30)
[2020-03-18] MEDS: Benzonatate 100 MG CAP PO PRN (02:18)
[2020-03-18] MEDS ORDERED: Potassium Chloride 20 MEQ TAB PO SCH (03:00)
[2020-03-18] MEDS ORDERED: guaiFENesin 100 MG/5 ML UDCUP PO PRN (03:15)
[2020-03-18] MEDS: Diabetic Tussin 200 MG/10 ML UDCUP PO PRN ×2 (03:43→20:16)
[2020-03-18 03:57] LABS: Phosphorus 3.3 mg/dL (2.3-4.7)
[2020-03-18 03:58] LABS: Anion Gap 18 mmol/L (10-20); BUN (Urea Nitrogen) 63 mg/dL (8.4-25.7); Calc. Creatinine Clearance 25 mL/min (70-130); Calcium 8.3 mg/dL (7.8-10.44); Carbon Dioxide 24 mmol/L (23-31); Chloride 104 mmol/L (98-107); Glucose 112 mg/dL (83-110); Magnesium 1.9 mg/dL (1.6-2.6); Potassium 3.1 mmol/L (3.5-5.1); Sodium 143 mmol/L (136-145)
[2020-03-18 04:38] LABS: #Eosinphils 0.2 thou/uL (0.0-0.7); #Lymphocytes 1.6 thou/uL (1.20-3.40); #Monocytes 0.8 thou/uL (0.11-0.59); #Neutrophils 7.8 thou/uL (1.40-6.50); %Basophils 0.4 % (0.0-1.0); %Lymphocytes 14.8 % (21.0-51.0); %Monocytes 7.7 % (0.0-10.0); Hemoglobin 11.8 g/dL (14.0-18.0); Mean Corpuscular HGB CONC 34.6 g/dL (32.0-36.0); Mean Corpuscular Hemoglobin 34.4 pg (27.0-31.0); Mean Corpuscular Volume 99.4 fL (78.0-98.0); Mean Platelet Volume 10.9 fL (7.4-10.4); Platelet Count 116 thou/uL (130-400); Platelet Morphology Comment Appears Decreased; RBC Distribution Width 12.8 % (11.5-14.5); Red Blood Cell (RBC) Count 3.45 mill/uL (4.70-6.10); White Blood Cell (WBC) Count 10.4 thou/uL (4.8-10.8)
[2020-03-18] MEDS: Furosemide 40 MG/4 ML VIAL SLOW IVP SCH ×2 (05:30→13:10)
[2020-03-18] MEDS: Heparin 5,000 UNITS/ML VIAL SC SCH ×2 (08:39→20:18)
[2020-03-18] MEDS: Clopidogrel Bisulfate 75 MG TAB PO SCH (08:39)
[2020-03-18] MEDS: Carvedilol 25 MG TAB PO SCH ×2 (08:39→20:16)
[2020-03-18] MEDS: Aspirin Chewable 81 MG TAB PO SCH (08:39)
[2020-03-18] MEDS: Cholecalciferol 1,000 UNITS (25 MCG) TAB PO SCH (08:40)
[2020-03-18] MEDS: Rosuvastatin 20 MG TAB PO SCH (08:40)
[2020-03-18] MEDS ORDERED: Sacubitril 49 MG/Valsartan 51 MG TABLET PO SCH ×4 (09:15→21:00)
[2020-03-18 09:42] LABS: SARS-CoV-2 MS2 Positive; SARS-CoV-2 N Gene Negative; SARS-CoV-2 S Gene Negative; SARS-CoV-2 by NAA Not Detected (NotDetected); SARS-CoV-2 orf1ab Negative
--- NOTE | 2020-03-18 13:58 | PRG ---
DATE OF SERVICE: 03/18/2020 SUBJECTIVE: Mr. Vázquez feels dramatically better than yesterday. No complaints. He is not having trouble breathing. OBJECTIVE: VITAL SIGNS: Blood pressure 143/83, pulse 70. LUNGS: Clear. CARDIAC: Normal S1, normal S2. ABDOMEN: Soft, nontender. EXTREMITIES: There is now very minimal edema. ASSESSMENT: 1. Congestive heart failure systolic acute on chronic, improved. 2. Stage 4 renal failure, stable. PLAN: 1. Replete potassium, it is down to 3.1. 2. I reduced furosemide to 40 mg a day. 3. Recheck tomorrow probably would be ready to go home tomorrow. Job ID: [id number]
[2020-03-18] MEDS ORDERED: diphenhydrAMINE 25 MG CAP PO PRN (18:25)
--- NOTE | 2020-03-18 18:28 | PDOC.HOSPP ---
- Subjective Encounter Date: 03/18/20 Subjective: Feeling much better overall. Breathing well. No complaints other than the slow process of getting his home meds correctly. - Objective Vital Signs & Weight: Vital Signs (12 hours) Temp Pulse Resp BP Pulse Ox 03/18/20 16:00 98.0 F 74 17 163/92 H 97 03/18/20 12:00 98.5 F 69 17 143/83 H 97 03/18/20 08:00 98.8 F 75 17 167/86 H 99 Weight Weight 226 lb 6.4 oz I&O: 03/17/20 03/18/20 03/19/20 06:59 06:59 06:59 Intake Total 240 1440 Output Total 3425 Balance Result Diagrams: 03/18/20 03:37 03/18/20 03:37 Hospitalist ROS - Medication Medications: Active Medications Generic Name Dose Route Start Last Admin Trade Name Freq PRN Reason Stop Dose Admin Aspirin 81 mg 03/18/20 09:00 03/18/20 08:39 Aspirin Chewable 81 Mg Tab PO 81 mg QAM JEROME Administration Carvedilol 12.5 mg 03/18/20 09:00 03/18/20 08:39 Carvedilol 25 Mg Tab PO 12.5 mg BID JEROME Administration Cholecalciferol 1,000 units 03/18/20 09:00 03/18/20 08:40 Cholecalciferol 1,000 Units (25 Mcg) Tab PO 1,000 units DAILY JEROME Administration Clopidogrel Bisulfate 75 mg 03/18/20 09:00 03/18/20 08:39 Clopidogrel Bisulfate 75 Mg Tab PO Not Given DAILY JEROME Furosemide 40 mg 03/18/20 14:00 03/18/20 13:10 Furosemide 40 Mg/4 Ml Vial SLOW IVP 40 mg 0600,1400 JEROME Administration Guaifenesin 200 mg 03/18/20 03:45 03/18/20 03:43 Diabetic Tussin 200 Mg/10 Ml Udcup PO 200 mg Q4H PRN Administration Cough Heparin Sodium (Porcine) 5,000 units 03/17/20 09:00 03/18/20 08:39 Heparin 5,000 Units/Ml Vial SC Not Given BID JEROME Isosorbide Mononitrate 15 mg 03/18/20 09:00 03/18/20 08:40 Isosorbide Mononitrate Er 30 Mg Tab PO 15 mg DAILY JEROME Administration Rosuvastatin Calcium 20 mg 03/18/20 09:00 03/18/20 08:40 Rosuvastatin 20 Mg Tab PO 20 mg DAILY JEROME Administration - Exam General Appearance: NAD, awake alert Heart: RRR, no murmur, no gallops, no rubs, normal peripheral pulses Respiratory: CTAB, no wheezes, no rales, no ronchi, normal chest expansion, no tachypnea, normal percussion Gastrointestinal: soft, non-tender, non-distended, normal bowel sounds, no palpa ble masses, no hepatomegaly, no splenomegaly, no bruit Extremities: no cyanosis, no clubbing, no edema Skin: normal turgor Neurological: no new deficit Musculoskeletal: normal tone, normal strength, no muscle wasting Hosp A/P (1) Acute on chronic systolic CHF (congestive heart failure) Code(s): I50.23 - ACUTE ON CHRONIC SYSTOLIC (CONGESTIVE) HEART FAILURE Status: Acute (2) CAD (coronary artery disease) Code(s): I25.10 - ATHSCL HEART DISEASE OF [place] CORONARY ARTERY W/O ANG PCTRS Status: Chronic (3) CKD (chronic kidney disease) Code(s): N18.9 - CHRONIC KIDNEY DISEASE, UNSPECIFIED Status: Chronic (4) Hypertension Code(s): I10 - ESSENTIAL (PRIMARY) HYPERTENSION Status: Chronic (5) Hypokalemia Code(s): E87.6 - HYPOKALEMIA Status: Acute - Plan Acute on Chronic Systolic CHF: Severe Cardiomyopathy with EF 15-20%. Moderate MR. IV diuresis initiated. Cardiology consulted. Resumed Norris Cedillo. CAD: Resume home meds of Aspirin, Plavix, Statin, Imdur HTN: Resumed home meds. HLD: Resumed home meds. Hypokalemia: Due to diuresis. Repleted. CKD IV: Baseline creatinine.
[2020-03-18] MEDS: Sacubitril 49 MG/Valsartan 51 MG TABLET PO SCH (20:15)
[2020-03-18] MEDS ORDERED: Allopurinol 300 MG TAB PO SCH (21:00)
[2020-03-18] MEDS ORDERED: Non-Formulary Item 1 EACH (Sacubitril/Valsartan [Entresto 97 Mg-103 Mg Tablet] 1 EACH Tab PO SCH (21:00)
[2020-03-19 05:17] LABS: Anion Gap 19 mmol/L (10-20); BUN (Urea Nitrogen) 67 mg/dL (8.4-25.7); Calc. Creatinine Clearance 25 mL/min (70-130); Calcium 8.4 mg/dL (7.8-10.44); Carbon Dioxide 23 mmol/L (23-31); Chloride 104 mmol/L (98-107); Glucose 91 mg/dL (83-110); Potassium 3.1 mmol/L (3.5-5.1); Sodium 143 mmol/L (136-145)
[2020-03-19] MEDS: Furosemide 40 MG/4 ML VIAL SLOW IVP SCH (05:19)
[2020-03-19 07:23] VITALS: BP 158/84; TEMP 97.9
[2020-03-19] MEDS ORDERED: Potassium Chloride 20 MEQ TAB PO SCH (07:30)
[2020-03-19] MEDS: Sacubitril 49 MG/Valsartan 51 MG TABLET PO SCH (09:09)
[2020-03-19] MEDS: Carvedilol 25 MG TAB PO SCH (09:09)
[2020-03-19] MEDS: Heparin 5,000 UNITS/ML VIAL SC SCH (09:10)
[2020-03-19] MEDS: Rosuvastatin 20 MG TAB PO SCH (09:10)
[2020-03-19] MEDS: Clopidogrel Bisulfate 75 MG TAB PO SCH (09:10)
[2020-03-19] MEDS: Cholecalciferol 1,000 UNITS (25 MCG) TAB PO SCH (09:10)
[2020-03-19] MEDS: Aspirin Chewable 81 MG TAB PO SCH (09:10)
--- NOTE | 2020-03-19 09:59 | PRG ---
DATE OF SERVICE: 03/19/2020 SUBJECTIVE: Mr. Vázquez is doing better. Breathing has improved. Not short of breath. OBJECTIVE: VITAL SIGNS: Blood pressure still high 158/84, pulse 70 and it is regular. LUNGS: Clear. CARDIAC: Normal S1, normal S2. ABDOMEN: Soft, nontender. EXTREMITIES: No edema. LABORATORY DATA: Echocardiograms were reviewed. Ejection fraction 20% to 25%, but he has [id number] mitral regurgitation, probably related to left ventricular dilatation. ASSESSMENT: 1. Relatively sudden onset of pulmonary edema probably related to depressed left ventricular function and in the setting of [id number] mitral regurgitation. 2. Stage 4 renal failure. PLAN: 1. To go home on Entresto 97/ twice a day as before. 2. Change to torsemide 20 mg twice a day instead of furosemide. 3. Hydralazine 10 mg three times a day had increased to 25 mg three times a day if tolerated. 4. Continue aspirin and Plavix. 5. Continue statins. 6. Continue Coreg 12.5 mg twice a day. 7. See us in the office in about 3 weeks. 8. Nitroglycerin as needed for shortness of breath that will least help until he goes into pulmonary edema. Hopefully, this can be avoided. Job ID: [id number]
--- NOTE | 2020-03-19 10:04 | PDOC.DS.DS ---
Provider - Provider Date of Admission: 03/17/20 16:53 Date of Discharge: 03/19/20 Admitting Provider: Froy Amaral MD Consultations: Cardiology Primary Care Physician: Christiano Artis MD Course - Hospital Course Hospital Course: Acute on Chronic Systolic CHF: Severe Cardiomyopathy with EF 15-20%. Moderate MR. IV diuresis initiated very good response. Cardiology consulted. Resumed Entresto, Coreg. Repeat echocardiogram revealed an ejection fraction of 20 to 25% with moderate to severely dilated left atrium, moderate to severe MR. Once improved the patient's diuretic dosing was tapered. When he was back to his baseline he was felt to be stable for discharge with outpatient follow-up. CAD: Resume home meds of Aspirin, Plavix, Statin, Imdur HTN: Resumed home meds. HLD: Resumed home meds. Hypokalemia: Due to diuresis. Repleted. CKD IV: Baseline creatinine. - Labs Lab Results: 03/18/20 03:37 03/19/20 04:29 Abnormal Lab Results - Last 48 hrs 03/17/20 13:46: Troponin I 0.134 H 03/17/20 17:45: Sodium 146 H, Potassium 3.3 L, BUN 64 H, Creatinine 3.63 H 03/18/20 03:37: Potassium 3.1 L, BUN 63 H, Creatinine 3.62 H 03/18/20 03:37: B-Natriuretic Peptide 3540.9 H 03/18/20 03:37: RBC 3.45 L, Hgb 11.8 L, Hct 34.3 L, MCV 99.4 H, MCH 34.4 H, Plt Count 116 L, MPV 10.9 H, Lymphocytes % 14.8 L, Neutrophils # 7.8 H, Monocytes # 0.8 H, Plt Morphology Comment Appears Decreased L 03/19/20 04:29: Potassium 3.1 L, BUN 67 H, Creatinine 3.59 H - Physical Exam Vitals: Vital Signs (12 hours) Temp Pulse Resp BP Pulse Ox 03/19/20 07:21 97.9 F 73 17 158/84 H 97 03/19/20 04:00 98.2 F 71 18 146/70 H 96 03/19/20 00:00 171/95 H Weight Weight 226 lb 12.8 oz Physical Exam: The patient was seen and examined on the day of discharge. Patient was awake and alert. Heart was regular without murmur. Lungs were clear bilaterally. Abdomen was benign. There was no peripheral edema. Problem - Problem (1) Acute on chronic systolic CHF (congestive heart failure) Code(s): I50.23 - ACUTE ON CHRONIC SYSTOLIC (CONGESTIVE) HEART FAILURE Status: Acute (2) CAD (coronary artery disease) Code(s): I25.10 - ATHSCL HEART DISEASE OF [place] CORONARY ARTERY W/O ANG PCTRS Status: Chronic (3) CKD (chronic kidney disease) Code(s): N18.9 - CHRONIC KIDNEY DISEASE, UNSPECIFIED Status: Chronic (4) Hypertension Code(s): I10 - ESSENTIAL (PRIMARY) HYPERTENSION Status: Chronic (5) Hypokalemia Code(s): E87.6 - HYPOKALEMIA Status: Acute - Time spent with Patient (mins): 20 Plan - Discharge Medications Home Medications: Medication Instructions Recorded Confirmed Type Allopurinol 150 mg PO QPM 07/17/13 03/17/20 History Aspirin Chewable [Aspirin Chewable 81 mg PO QAM 07/17/13 03/17/20 History Tablet] Carvedilol [Coreg] 12.5 mg PO BID 03/17/20 03/17/20 History Cholecalciferol (Vitamin D3) 2,000 mg PO DAILY 03/17/20 03/17/20 History [Vitamin D3] Clopidogrel Bisulfate [Plavix] 1 tab PO ASDIR 03/17/20 03/17/20 History Doxepin HCl [Sinequan] 1 cap PO QPM PRN 03/17/20 03/17/20 History Furosemide [Lasix Oral Solution] 40 mg PO ASDIR 03/17/20 03/17/20 History Isosorbide Mononitrate 15 mg PO DAILY 03/17/20 03/17/20 History Potassium Chloride [K-Dur] 10 meq PO BID 03/17/20 03/17/20 History Rosuvastatin Calcium [Crestor] 1 tab PO HS 03/17/20 03/17/20 History Sacubitril/Valsartan [Entresto 97 1 tab PO BID 03/17/20 03/17/20 History mg-103 mg Tablet] Allergies: No Known Allergies Allergy (Verified 11/12/19 21:11) - Discharge Instructions Activity:: Activity as Tolerated Nourishment:: Heart Healthy Diet, Low Sodium Diet - Follow up Plan Referrals: Cardiac Rehab - [place] [Outside] - 7 Days (Your doctor has ordered outpatient cardiac rehab for you to begin within 1-2 weeks after you go home from the hospital. The location nearest to you is the [facility]. The front office in [place] will call you in 3-5 days to get you scheduled for your evaluation. If you do not receive a call, please reach out to them at [phone] and request an appointment. Should you have any trouble or need assistance, please call the cardiac rehab main line in [place] at [phone]) Selena Herrmann MD [Active] - 2-3 Weeks (Please call the office to schedule an appointment in 3 weeks) Christiano Artis MD [Primary Care Provider] - 7 Days (Please call the office to schedule an appointment within the next week) Disposition: HOME Quality - Care Measures CORE MEASURES:: HF
[2020-03-19] MEDS ORDERED: Torsemide 20 MG TAB PO SCH (14:00)
[2020-03-19] MEDS ORDERED: hydrALAZINE 10 MG TAB PO SCH (15:00)
[2020-03-19] MEDS ORDERED: Sacubitril 49 MG/Valsartan 51 MG TABLET PO SCH (21:00)
== END 2020-03-19 10:40 | disposition home or self-care (01) | DRG 291 ==
LOC: ERS 04:08 → 2NO 04:47 → OBSVTOIN 16:53
PROVIDERS: ADMIT Internal Medicine; ATTEND Internal Medicine
DX: I13.0 Hypertensive heart and chronic kidney disease with heart failure and stage 1 through stage 4 chronic kidney disease, or unspecified chronic kidney disease (principal); I50.23 Acute on chronic systolic (congestive) heart failure; N18.4 Chronic kidney disease, stage 4 (severe); Z20.828 Contact with and (suspected) exposure to other viral communicable diseases; E87.0 Hyperosmolality and hypernatremia; E11.22 Type 2 diabetes mellitus with diabetic chronic kidney disease; E78.5 Hyperlipidemia, unspecified; C61 Malignant neoplasm of prostate; I25.10 Atherosclerotic heart disease of native coronary artery without angina pectoris; D63.1 Anemia in chronic kidney disease; E87.6 Hypokalemia; I42.9 Cardiomyopathy, unspecified; Z95.5 Presence of coronary angioplasty implant and graft; Z95.810 Presence of automatic (implantable) cardiac defibrillator; Z87.891 Personal history of nicotine dependence
CPT/HCPCS: 36415; 36416; 80048; 82553; 83735; 83880; 84100; 85025; 87635; 93005; 93010; 93306; 93798; 96374; 96376; 97139; G0378; J0360; J1940; Q0163; U0003

== ENCOUNTER 2021-01-17 11:07 | Inpatient (IN) | payer MEDICARE, OTHER ==
[2021-01-17 11:40] LABS: #Basophils 0.1 thou/uL (0.0-0.2); #Eosinphils 0.3 thou/uL (0.0-0.7); #Lymphocytes 1.4 thou/uL (1.20-3.40); #Monocytes 0.5 thou/uL (0.11-0.59); #Neutrophils 3.9 thou/uL (1.40-6.50); %Basophils 0.9 % (0.0-1.0); %Eosinophils 4.5 % (0.0-10.0); %Lymphocytes 22.8 % (21.0-51.0); %Monocytes 8.4 % (0.0-10.0); %Neutrophils 63.5 % (42.0-75.0); Hemoglobin 11.5 g/dL (14.0-18.0); Mean Corpuscular HGB CONC 33.7 g/dL (32.0-36.0); Mean Corpuscular Hemoglobin 33.2 pg (27.0-31.0); Mean Corpuscular Volume 98.7 fL (78.0-98.0); Platelet Count 130 thou/uL (130-400); RBC Distribution Width 13.5 % (11.5-14.5); Red Blood Cell (RBC) Count 3.47 mill/uL (4.70-6.10); White Blood Cell (WBC) Count 6.1 thou/uL (4.8-10.8)
[2021-01-17 12:21] LABS: ALT (SGPT) Less than 7 U/L (8-55); AST (SGOT) 10 U/L (5-34); Albumin 4.3 g/dL (3.4-4.8); Alkaline Phosphatase 82 U/L (40-110); Anion Gap 16 mmol/L (10-20); BUN (Urea Nitrogen) 78 mg/dL (8.4-25.7); Bilirubin, Total 0.6 mg/dL (0.2-1.2); Calc. Creatinine Clearance 0 mL/min (70-130); Calcium 9.1 mg/dL (7.8-10.44); Carbon Dioxide 19 mmol/L (23-31); Chloride 111 mmol/L (98-107); Glucose 98 mg/dL (83-110); Potassium 4.7 mmol/L (3.5-5.1); Protein, Total 6.3 g/dL (5.8-8.1); Sodium 141 mmol/L (136-145)
[2021-01-17 12:27] VITALS: BMI 29.1
[2021-01-17] MEDS ORDERED: HumaLOG 300 UNITS/3 ML VIAL SC PRN ×2 (13:04)
[2021-01-17] MEDS ORDERED: Dextrose 50% Abboject 50 ML SYRINGE SLOW IVP PRN (13:04)
[2021-01-17] MEDS ORDERED: Dextrose 5% in Water 1,000 ML IV PRN (13:04)
[2021-01-17] MEDS ORDERED: Heparin 10,000 UNITS/ 10 ML VIAL FS PRN ×2 (13:08→13:15)
[2021-01-17] MEDS ORDERED: CEFAZOLIN 2 GM in Premix Bag 1 BAG IVPB SCH (14:00)
[2021-01-17 14:12] LABS: #Basophils 0.1 thou/uL (0.0-0.2); #Eosinphils 0.2 thou/uL (0.0-0.7); #Lymphocytes 1.3 thou/uL (1.20-3.40); #Monocytes 0.3 thou/uL (0.11-0.59); #Neutrophils 3.2 thou/uL (1.40-6.50); %Basophils 1.5 % (0.0-1.0); %Lymphocytes 25.1 % (21.0-51.0); %Monocytes 5.4 % (0.0-10.0); Hemoglobin 11.3 g/dL (14.0-18.0); Mean Corpuscular HGB CONC 33.9 g/dL (32.0-36.0); Mean Corpuscular Hemoglobin 33.4 pg (27.0-31.0); Mean Corpuscular Volume 98.7 fL (78.0-98.0); Mean Platelet Volume 12.4 fL (7.4-10.4); Platelet Count 124 thou/uL (130-400); RBC Distribution Width 13.4 % (11.5-14.5); Red Blood Cell (RBC) Count 3.37 mill/uL (4.70-6.10)
[2021-01-17 14:31] LABS: Phosphorus 4.6 mg/dL (2.3-4.7)
[2021-01-17 14:34] LABS: ALT (SGPT) Less than 7 U/L (8-55); AST (SGOT) 10 U/L (5-34); Albumin 4.2 g/dL (3.4-4.8); Alkaline Phosphatase 81 U/L (40-110); Anion Gap 16 mmol/L (10-20); BUN (Urea Nitrogen) 80 mg/dL (8.4-25.7); Bilirubin, Total 0.6 mg/dL (0.2-1.2); Calc. Creatinine Clearance 14 mL/min (70-130); Calcium 9.1 mg/dL (7.8-10.44); Carbon Dioxide 19 mmol/L (23-31); Chloride 112 mmol/L (98-107); Glucose 86 mg/dL (83-110); Potassium 4.7 mmol/L (3.5-5.1); Protein, Total 6.2 g/dL (5.8-8.1); Sodium 142 mmol/L (136-145)
[2021-01-17 14:53] LABS: HIV (1/2) Antibody/Antigen Non-Reactive (NonReactive); HIV 1/2 INDEX 0.08 S/CO (<1.00); Hep C IgG Ab Non-Reactive (NonReactive); Hep C Index 0.06 S/CO (0-0.79)
[2021-01-17 14:54] LABS: SARS-CoV-2 NAA Rapid Test Not Detected (NotDetected)
[2021-01-17] MEDS ORDERED: Tuberculin PPD 0.1 ML VIAL I-DERMAL SCH (15:00)
[2021-01-17] MEDS ORDERED: Dextrose 50% Abboject 50 ML SYRINGE ONE (16:27)
[2021-01-17] MEDS ORDERED: Sodium Chloride 0.9% 30 ML ONE (16:57)
[2021-01-17] MEDS ORDERED: Heparin 10,000 UNITS/ 10 ML VIAL ONE (16:57)
[2021-01-17] MEDS ORDERED: Lidocaine 1% w/Epinephrine 1:100K 20 ML VIAL ONE (16:57)
[2021-01-17] MEDS ORDERED: Bupivacaine PF 0.5% 30 ML VIAL ONE (16:57)
[2021-01-17] MEDS ORDERED: Propofol 500 MG/50 ML VIAL ONE (17:07)
[2021-01-17] MEDS ORDERED: PROPOFOL 200 MG/20 ML VIAL ONE (17:20)
[2021-01-17] MEDS ORDERED: Morphine 4 MG/ML VIAL SLOW IVP PRN ×2 (22:34→22:37)
[2021-01-17] MEDS: Acetaminophen 325 MG TAB PO PRN (23:24)
[2021-01-18] MEDS: Acetaminophen 325 MG TAB PO PRN (05:40)
[2021-01-18 06:18] LABS: Anion Gap 16 mmol/L (10-20); BUN (Urea Nitrogen) 75 mg/dL (8.4-25.7); Calc. Creatinine Clearance 15 mL/min (70-130); Calcium 8.6 mg/dL (7.8-10.44); Carbon Dioxide 18 mmol/L (23-31); Chloride 112 mmol/L (98-107); Glucose 73 mg/dL (83-110); Potassium 4.3 mmol/L (3.5-5.1); Sodium 142 mmol/L (136-145)
[2021-01-18 06:27] LABS: #Basophils 0.1 thou/uL (0.0-0.2); #Eosinphils 0.2 thou/uL (0.0-0.7); #Lymphocytes 1.4 thou/uL (1.20-3.40); #Monocytes 0.5 thou/uL (0.11-0.59); #Neutrophils 3.8 thou/uL (1.40-6.50); %Eosinophils 2.7 % (0.0-10.0); %Monocytes 8.9 % (0.0-10.0); %Neutrophils 64.4 % (42.0-75.0); Hemoglobin 10.6 g/dL (14.0-18.0); MDiff Complete? YES; Mean Corpuscular HGB CONC 33.9 g/dL (32.0-36.0); Mean Corpuscular Hemoglobin 33.2 pg (27.0-31.0); Mean Corpuscular Volume 98.1 fL (78.0-98.0); Platelet Count 117 thou/uL (130-400); Platelet Morphology Comment Appears Decreased; RBC Distribution Width 13.3 % (11.5-14.5); Red Blood Cell (RBC) Count 3.18 mill/uL (4.70-6.10); Schistocytes SLIGHT = 2-5 cells (100X) (0-1/hpf); White Blood Cell (WBC) Count 5.9 thou/uL (4.8-10.8)
[2021-01-18 08:54] LABS: HBSAg Index 0.18 S/CO (0-0.99); Hep B Surf Ag Non-Reactive S/CO (NonReactive)
[2021-01-18] MEDS ORDERED: Heparin 10,000 UNITS/ 10 ML VIAL ONE ×2 (10:25→11:40)
[2021-01-18] MEDS ORDERED: CEFAZOLIN 2 GM in Premix Bag 1 BAG IVPB SCH (16:00)
[2021-01-18] MEDS ORDERED: Doxepin HCl 25 MG CAP PO PRN (16:16)
[2021-01-18] MEDS: Carvedilol 6.25 MG TAB PO SCH (20:17)
[2021-01-18] MEDS: Rosuvastatin 20 MG TAB PO SCH (20:17)
[2021-01-18] MEDS: Potassium Chloride 10 MEQ TAB PO SCH (20:17)
[2021-01-19] MEDS: Carvedilol 6.25 MG TAB PO SCH ×2 (05:22→19:34)
[2021-01-19] MEDS ORDERED: Fentanyl 100 MCG/2 ML VIAL ONE (06:44)
[2021-01-19] MEDS ORDERED: Heparin 10,000 UNITS/ 10 ML VIAL ONE (06:44)
[2021-01-19] MEDS ORDERED: Heparin 5,000 UNITS/ML VIAL ONE (06:44)
[2021-01-19] MEDS ORDERED: Lidocaine 1% w/Epinephrine 1:100K 20 ML VIAL ONE (06:44)
[2021-01-19] MEDS ORDERED: Protamine Sulfate 50 MG/5 ML VIAL ONE (06:44)
[2021-01-19] MEDS ORDERED: Bupivacaine PF 0.5% 30 ML VIAL ONE (06:44)
[2021-01-19] MEDS ORDERED: PHENYLEPHRINE-NS 100 MCG/ML 10 ML SYRINGE ONE (07:05)
[2021-01-19] MEDS ORDERED: Ropivacaine 0.5% HCl/PF (150 MG/30 ML VIAL) ONE (07:05)
[2021-01-19] MEDS ORDERED: PROPOFOL 200 MG/20 ML VIAL ONE (07:05)
[2021-01-19] MEDS ORDERED: Propofol 500 MG/50 ML VIAL ONE (07:23)
[2021-01-19] MEDS ORDERED: Ketamine 50 MG/ML (10ML VIAL) ONE (07:23)
[2021-01-19] MEDS ORDERED: Phenylephrine 10 MG/ML VIAL ONE (07:38)
[2021-01-19] MEDS ORDERED: READ PPD TEST SITE PO SCH (09:00)
[2021-01-19 09:17] LABS: Hep B Surface AG-Rflx Sendout Negative (Negative); Hepatitis B Core Total Negative (Negative); Hepatitis B Surface AB-Sendout Non Reactive (.)
[2021-01-19] MEDS: Potassium Chloride 10 MEQ TAB PO SCH ×2 (10:17→19:34)
[2021-01-19] MEDS: Cholecalciferol 1,000 UNITS (25 MCG) TAB PO SCH (10:17)
[2021-01-19] MEDS: Rosuvastatin 20 MG TAB PO SCH (19:34)
[2021-01-19] MEDS: Acetaminophen 325 MG TAB PO PRN (19:37)
[2021-01-20] MEDS ORDERED: Heparin 10,000 UNITS/ 10 ML VIAL ONE (14:15)
[2021-01-20] MEDS: Potassium Chloride 10 MEQ TAB PO SCH ×2 (16:49→21:41)
[2021-01-20] MEDS: Carvedilol 6.25 MG TAB PO SCH ×2 (16:49→21:41)
[2021-01-20] MEDS: Cholecalciferol 1,000 UNITS (25 MCG) TAB PO SCH (16:49)
[2021-01-20] MEDS: Acetaminophen 325 MG TAB PO PRN (16:50)
[2021-01-20] MEDS: Rosuvastatin 20 MG TAB PO SCH (21:41)
[2021-01-21] MEDS: Acetaminophen 325 MG TAB PO PRN (09:20)
[2021-01-21] MEDS: Carvedilol 6.25 MG TAB PO SCH ×2 (09:24→20:36)
[2021-01-21] MEDS: Cholecalciferol 1,000 UNITS (25 MCG) TAB PO SCH (09:25)
[2021-01-21] MEDS: Potassium Chloride 10 MEQ TAB PO SCH ×2 (09:25→20:37)
[2021-01-21] MEDS: Rosuvastatin 20 MG TAB PO SCH (20:39)
[2021-01-22] MEDS: Carvedilol 6.25 MG TAB PO SCH (10:48)
[2021-01-22] MEDS: Cholecalciferol 1,000 UNITS (25 MCG) TAB PO SCH (10:49)
[2021-01-22] MEDS: Potassium Chloride 10 MEQ TAB PO SCH (10:50)
[2021-01-22] MEDS ORDERED: Heparin 10,000 UNITS/ 10 ML VIAL ONE (14:21)
[2021-01-22 14:35] VITALS: BP 132/82; TEMP 97.8
== END 2021-01-22 14:26 | disposition home or self-care (01) | DRG 673 ==
LOC: ERS 11:07 → T4-B 12:12
PROVIDERS: ADMIT Internal Medicine; ATTEND Internal Medicine
PROC: 0JH60XZ Insertion of Tunneled Vascular Access Device into Chest Subcutaneous Tissue and Fascia, Open Approach (ICD-10-PCS; 2021-01-17)
PROC: 02HV33Z Insertion of Infusion Device into Superior Vena Cava, Percutaneous Approach (ICD-10-PCS; 2021-01-17)
PROC: B5181ZA Fluoroscopy of Superior Vena Cava using Low Osmolar Contrast, Guidance (ICD-10-PCS; 2021-01-17)
PROC: B548ZZA Ultrasonography of Superior Vena Cava, Guidance (ICD-10-PCS; 2021-01-17)
PROC: 5A1D70Z Performance of Urinary Filtration, Intermittent, Less than 6 Hours Per Day (ICD-10-PCS; 2021-01-18)
PROC: 031B0ZF Bypass Right Radial Artery to Lower Arm Vein, Open Approach (ICD-10-PCS; principal; 2021-01-19)
DX: I12.0 Hypertensive chronic kidney disease with stage 5 chronic kidney disease or end stage renal disease (principal); N18.6 End stage renal disease; I25.10 Atherosclerotic heart disease of native coronary artery without angina pectoris; C61 Malignant neoplasm of prostate; E78.00 Pure hypercholesterolemia, unspecified; I25.5 Ischemic cardiomyopathy; M19.90 Unspecified osteoarthritis, unspecified site; C44.40 Unspecified malignant neoplasm of skin of scalp and neck; Z20.822 Contact with and (suspected) exposure to COVID-19; Z95.810 Presence of automatic (implantable) cardiac defibrillator; Z79.82 Long term (current) use of aspirin; Z79.899 Other long term (current) drug therapy; I25.2 Old myocardial infarction; Z95.5 Presence of coronary angioplasty implant and graft; Z87.891 Personal history of nicotine dependence
CPT/HCPCS: 36415; 36416; 71045; 80048; 80053; 83880; 84100; 85025; 86580; 86704; 86705; 86706; 86707; 86803; 87340; 87350; 87389; 87902; 90935; 93005; 93010; 93306; 93970; C1751; C1752; G0257; J1644; J2370; J2704; J2720; J2795; J3010; S0020; U0002

== ENCOUNTER 2023-04-22 11:57 | Observation (INO) | payer MEDICARE, OTHER ==
[2023-04-22 16:04] VITALS: BMI 26.8
[2023-04-22] MEDS ORDERED: Acetaminophen 325 MG TAB PO PRN (16:08)
[2023-04-22] MEDS ORDERED: HYDROcodone/Acetaminophen 5/325 mg Tablet PO PRN (16:08)
[2023-04-22] MEDS ORDERED: FLU VACC QS2023(65UP)/MF59C/PF 60 MCG/0.5 ML SYRINGE IM ONE (16:15)
[2023-04-22] MEDS ORDERED: Dextrose 5% in Water 1,000 ML IV PRN (16:21)
[2023-04-22] MEDS ORDERED: Dextrose 50% Abboject 50 ML SYRINGE SLOW IVP PRN (16:21)
[2023-04-22] MEDS ORDERED: HumaLOG 300 UNITS/3 ML VIAL SC PRN ×2 (16:21)
[2023-04-22] MEDS ORDERED: Glucagon 1 MG/ML KIT IM PRN (16:21)
[2023-04-22 16:22] VITALS: BP 142/84; TEMP 97.5
[2023-04-22] MEDS ORDERED: hydrALAZINE 25 MG TAB PO PRN (16:22)
== END 2023-04-22 19:15 | disposition home or self-care (01) ==
LOC: 2SW 14:15
PROVIDERS: ADMIT Internal Medicine; ATTEND Internal Medicine
DX: I13.2 Hypertensive heart and chronic kidney disease with heart failure and with stage 5 chronic kidney disease, or end stage renal disease (principal); E11.22 Type 2 diabetes mellitus with diabetic chronic kidney disease; N18.6 End stage renal disease; I50.9 Heart failure, unspecified; I25.10 Atherosclerotic heart disease of native coronary artery without angina pectoris; I42.9 Cardiomyopathy, unspecified; Z99.2 Dependence on renal dialysis; Z95.810 Presence of automatic (implantable) cardiac defibrillator; Z79.82 Long term (current) use of aspirin; Z79.899 Other long term (current) drug therapy; Z85.46 Personal history of malignant neoplasm of prostate; Z98.890 Other specified postprocedural states
CPT/HCPCS: G0378

== ENCOUNTER 2023-04-24 15:22 | Inpatient (IN) | payer MEDICARE, OTHER ==
[2023-04-24 16:34] LABS: #Basophils 0.1 thou/uL (0.0-0.2); #Eosinphils 0.1 thou/uL (0.0-0.7); #Monocytes 0.4 thou/uL (0.11-0.59); #Neutrophils 2.6 thou/uL (1.40-6.50); %Basophils 1.1 % (0.0-1.0); %Eosinophils 2.7 % (0.0-10.0); %Lymphocytes 29.1 % (21.0-51.0); %Monocytes 8.6 % (0.0-10.0); %Neutrophils 58.3 % (42.0-75.0); Hemoglobin 11.2 g/dL (14.0-18.0); Mean Corpuscular Hemoglobin 34.1 pg (27.0-31.0); Mean Corpuscular Volume 106.7 fl (78.0-98.0); Mean Platelet Volume 11.8 fL (7.4-10.4); Platelet Count 136 10x3/uL (130-400); RBC Distribution Width 14.8 % (11.5-14.5); Red Blood Cell (RBC) Count 3.28 mill/uL (4.70-6.10); White Blood Cell (WBC) Count 4.4 10x3/uL (4.8-10.8)
[2023-04-24 17:01] LABS: ALT (SGPT) 7 U/L (8-55); AST (SGOT) 20 U/L (5-34); Albumin 4.1 g/dL (3.4-4.8); Alkaline Phosphatase 57 U/L (40-110); Anion Gap 16 mmol/L (10-20); BUN (Urea Nitrogen) 57 mg/dL (8.4-25.7); Bilirubin, Total 0.8 mg/dL (0.2-1.2); Calc. Creatinine Clearance 0 mL/min (70-130); Calcium 8.8 mg/dL (7.8-10.44); Carbon Dioxide 25 mmol/L (23-31); Chloride 102 mmol/L (98-107); Estimated GFR 5; Globulin 2.4 g/dL (2.4-3.5); Glucose 77 mg/dL (83-110); Potassium 4.3 mmol/L (3.5-5.1); Protein, Total 6.5 g/dL (5.8-8.1); Sodium 139 mmol/L (136-145)
[2023-04-24 17:06] LABS: Troponin I 0.114 ng/mL (< 0.028)
[2023-04-24] MEDS ORDERED: Ondansetron ODT 4 MG TAB PO PRN (18:47)
[2023-04-24] MEDS ORDERED: Acetaminophen 325 MG TAB PO PRN (18:47)
[2023-04-24] MEDS ORDERED: Aspirin Chewable 81 MG TAB ONE (19:03)
[2023-04-24] MEDS ORDERED: Amiodarone 200 MG TAB ONE (19:03)
[2023-04-24 20:52] LABS: Troponin I 0.109 ng/mL (< 0.028)
[2023-04-24] MEDS ORDERED: Famotidine 20 MG TAB PO SCH (21:00)
[2023-04-24] MEDS ORDERED: Heparin 5,000 UNITS/ML VIAL ONE (23:35)
[2023-04-24] MEDS: Heparin 5,000 UNITS/ML VIAL SC SCH (23:48)
[2023-04-24] MEDS: Rosuvastatin 20 MG TAB PO SCH (23:48)
[2023-04-25 00:04] LABS: Troponin I 0.108 ng/mL (< 0.028)
[2023-04-25 01:55] VITALS: BMI 26.4
[2023-04-25 04:23] LABS: #Eosinphils 0.1 thou/uL (0.0-0.7); #Monocytes 0.4 thou/uL (0.11-0.59); %Basophils 0.8 % (0.0-1.0); %Eosinophils 2.9 % (0.0-10.0); %Lymphocytes 27.4 % (21.0-51.0); %Monocytes 7.6 % (0.0-10.0); %Neutrophils 60.9 % (42.0-75.0); Mean Corpuscular HGB CONC 32.4 g/dL (32.0-36.0); Mean Corpuscular Volume 104.9 fl (78.0-98.0); Mean Platelet Volume 11.5 fL (7.4-10.4); Platelet Count 140 10x3/uL (130-400); RBC Distribution Width 14.8 % (11.5-14.5); Red Blood Cell (RBC) Count 3.24 mill/uL (4.70-6.10); White Blood Cell (WBC) Count 4.9 10x3/uL (4.8-10.8)
[2023-04-25 04:50] LABS: ALT (SGPT) 7 U/L (8-55); AST (SGOT) 21 U/L (5-34); Albumin 3.9 g/dL (3.4-4.8); Alkaline Phosphatase 55 U/L (40-110); Anion Gap 18 mmol/L (10-20); BUN (Urea Nitrogen) 67 mg/dL (8.4-25.7); Bilirubin, Total 0.7 mg/dL (0.2-1.2); Calc. Creatinine Clearance 7 mL/min (70-130); Calcium 8.5 mg/dL (7.8-10.44); Carbon Dioxide 23 mmol/L (23-31); Chloride 102 mmol/L (98-107); Estimated GFR 4; Globulin 2.4 g/dL (2.4-3.5); Glucose 71 mg/dL (83-110); Potassium 4.3 mmol/L (3.5-5.1); Protein, Total 6.3 g/dL (5.8-8.1); Sodium 139 mmol/L (136-145)
[2023-04-25 05:01] LABS: Troponin I 0.084 ng/mL (< 0.028)
[2023-04-25] MEDS ORDERED: Carvedilol 25 MG TAB PO SCH (08:00)
[2023-04-25 08:50] LABS: Troponin I 0.101 ng/mL (< 0.028)
[2023-04-25] MEDS ORDERED: Clopidogrel Bisulfate 75 MG TAB ONE (08:57)
[2023-04-25] MEDS ORDERED: Heparin 5,000 UNITS/ML VIAL ONE (08:57)
[2023-04-25] MEDS ORDERED: Carvedilol 6.25 MG TAB ONE ×2 (08:57→17:16)
[2023-04-25] MEDS ORDERED: Aspirin Chewable 81 MG TAB ONE (08:58)
[2023-04-25] MEDS ORDERED: Amiodarone 200 MG TAB ONE ×2 (08:58→14:12)
[2023-04-25] MEDS ORDERED: Torsemide 10 MG TAB PO SCH (09:00)
[2023-04-25] MEDS ORDERED: Clopidogrel Bisulfate 75 MG TAB PO SCH (09:00)
[2023-04-25] MEDS ORDERED: Enoxaparin 40 MG (0.4 mL) SYRINGE SC SCH (09:00)
[2023-04-25] MEDS: Aspirin Chewable 81 MG TAB PO SCH (09:17)
[2023-04-25] MEDS: Amiodarone 200 MG TAB PO SCH ×3 (09:17→21:05)
[2023-04-25] MEDS: Carvedilol 6.25 MG TAB PO SCH ×2 (09:17→17:16)
[2023-04-25] MEDS: Heparin 5,000 UNITS/ML VIAL SC SCH (09:21)
[2023-04-25] MEDS: Isosorbide Mononitrate 30 MG ER.TAB PO SCH (09:32)
[2023-04-25] MEDS: Cholecalciferol 1,000 UNITS (25 MCG) TAB PO SCH (09:32)
[2023-04-25] MEDS: Cinacalcet HCl 30 MG TAB PO SCH (09:35)
[2023-04-25] MEDS ORDERED: Communication Order-Pharmacy FS SCH (17:15)
[2023-04-25] MEDS: Rosuvastatin 20 MG TAB PO SCH (21:05)
[2023-04-26] MEDS: Isosorbide Mononitrate 30 MG ER.TAB PO SCH (05:35)
[2023-04-26] MEDS: Carvedilol 6.25 MG TAB PO SCH ×2 (05:35→19:14)
[2023-04-26] MEDS: Amiodarone 200 MG TAB PO SCH ×2 (05:35→19:14)
[2023-04-26] MEDS: Aspirin Chewable 81 MG TAB PO SCH (05:36)
[2023-04-26] MEDS: Cinacalcet HCl 30 MG TAB PO SCH (05:36)
[2023-04-26] MEDS: Cholecalciferol 1,000 UNITS (25 MCG) TAB PO SCH ×2 (05:37→05:39)
[2023-04-26] MEDS ORDERED: Sodium Chloride 0.9% 1,000 ML IV SCH (06:00)
[2023-04-26] MEDS ORDERED: Heparin 10,000 UNITS/ 10 ML VIAL ONE ×2 (06:09→13:32)
[2023-04-26] MEDS ORDERED: fentaNYL 50 mcg/mL 1 mL Vial ONE ×2 (06:09→07:53)
[2023-04-26] MEDS ORDERED: Midazolam HCl 2 mg/2 ml Vial ONE (06:09)
[2023-04-26] MEDS ORDERED: Lidocaine 1% (PF) 30 ML VIAL ONE (06:09)
[2023-04-26] MEDS ORDERED: Nitroglycerin 50 MG/250 ML BOT 0 ML ONE (06:10)
[2023-04-26] MEDS ORDERED: Acetaminophen/Codeine 30-300mg Tablet PO PRN ×2 (08:00)
[2023-04-26] MEDS ORDERED: Sodium Chloride 0.9% 200 ML IV PRN (08:00)
[2023-04-26] MEDS ORDERED: Nitroglycerin 0.4 MG TAB (25 Tab Bottle) SL PRN (08:00)
[2023-04-26 12:44] VITALS: BP 156/78; TEMP 97.3
[2023-04-26 14:53] LABS: HBSAg Index 0.22 S/CO (0-0.99); Hep B Surf Ag Non-Reactive S/CO (NonReactive)
[2023-04-26 14:58] LABS: Hep B Surf AB Reactive (NonReactive)
[2023-04-26] MEDS: Rosuvastatin 20 MG TAB PO SCH (20:40)
[2023-04-26] MEDS ORDERED: Amiodarone 200 MG TAB PO SCH (21:00)
== END 2023-04-26 20:43 | disposition home or self-care (01) | DRG 286 ==
LOC: ERS 15:22 → ERHOLD 18:30 → 2SW 04-25 18:27 → OBSVTOIN 04-26 11:27
PROVIDERS: ADMIT Internal Medicine; ATTEND Student in an Organized Health Care Education/Training Program
PROC: 4A023N7 Measurement of Cardiac Sampling and Pressure, Left Heart, Percutaneous Approach (ICD-10-PCS; principal; 2023-04-26)
PROC: B2111ZZ Fluoroscopy of Multiple Coronary Arteries using Low Osmolar Contrast (ICD-10-PCS; 2023-04-26)
PROC: B2151ZZ Fluoroscopy of Left Heart using Low Osmolar Contrast (ICD-10-PCS; 2023-04-26)
DX: I47.20 Ventricular tachycardia, unspecified (principal); N18.6 End stage renal disease; I13.2 Hypertensive heart and chronic kidney disease with heart failure and with stage 5 chronic kidney disease, or end stage renal disease; I50.22 Chronic systolic (congestive) heart failure; E78.5 Hyperlipidemia, unspecified; F32.A Depression, unspecified; I25.5 Ischemic cardiomyopathy; E11.22 Type 2 diabetes mellitus with diabetic chronic kidney disease; Z85.46 Personal history of malignant neoplasm of prostate; Z95.0 Presence of cardiac pacemaker; Z99.2 Dependence on renal dialysis; Z95.5 Presence of coronary angioplasty implant and graft; Z98.890 Other specified postprocedural states; Z87.891 Personal history of nicotine dependence; Z79.82 Long term (current) use of aspirin; Z79.899 Other long term (current) drug therapy
CPT/HCPCS: 36415; 71045; 80053; 84145; 84443; 84484; 85025; 86706; 87340; 93005; 93458; 97139; 99152; 99153; C1769; C1894; J1644; J2001; J2250; J3010; J7050

== ENCOUNTER 2024-03-08 09:06 | Emergency (ER) | payer MEDICARE, OTHER ==
[2024-03-08] MEDS ORDERED: Acetaminophen 500 MG TAB ONE (09:42)
== END 2024-03-08 11:40 | disposition home or self-care (01) ==
LOC: ERS 09:06
DX: S06.9X9A Unspecified intracranial injury with loss of consciousness of unspecified duration, initial encounter (principal); S61.412A Laceration without foreign body of left hand, initial encounter; I12.0 Hypertensive chronic kidney disease with stage 5 chronic kidney disease or end stage renal disease; E11.22 Type 2 diabetes mellitus with diabetic chronic kidney disease; N18.6 End stage renal disease; I48.91 Unspecified atrial fibrillation; Z99.2 Dependence on renal dialysis; Z87.891 Personal history of nicotine dependence; W18.11XA Fall from or off toilet without subsequent striking against object, initial encounter
CPT/HCPCS: 70450; 72125